=== PATIENT | male | born 1965 | race Two or more races ===

== ENCOUNTER → 2024-06-29 | Outpatient (CLI) | payer MEDICAID, SELFPAY ==
--- NOTE | 2024-06-29 11:30 | XR_ITS ---
Examination: Abdomen sonogram, Limited Date and time of exam: June 29, 2024 11:00 AM INDICATIONS: Abnormal liver function tests on laboratory examination one month ago Technique: Real-time flores scale transabdominal sonographic images of the upper abdomen obtained. Findings: Normal gallbladder Normal common bile duct 0.5 cm Pancreas obscured by bowel gas Liver 13.3 cm fatty infiltration smooth contour no focal liver lesions Normal hepatopedal portal venous flow Patent IVC IMPRESSION: Normal gallbladder Normal common bile duct Fatty liver
== END | disposition home or self-care (01) ==
LOC: CDIM 10:35
PROVIDERS: PCP Physician Assistant; Referring Provider Physician Assistant; Visit Provider Physician Assistant
DX: K76.0 Fatty (change of) liver, not elsewhere classified (principal)
CPT/HCPCS: 76705

== ENCOUNTER → 2025-03-13 | Outpatient (CLI) | payer MEDICAID, SELFPAY ==
--- NOTE | 2025-03-13 09:30 | XR_ITS ---
Examination: Abdomen sonogram, Limited Date and time of exam: March 13, 2025, 0926 hours INDICATIONS: Elevated alkaline phosphatase on laboratory examination performed several months ago Technique: Real-time flores scale transabdominal sonographic images of the upper abdomen obtained. Findings: Normal gallbladder. Normal common bile duct 0.5 cm no stones Pancreatic head 2.2 cm Liver 13.7 cm no liver lesions Normal hepatopetal portal venous flow Patent IVC IMPRESSION: Negative study
== END | disposition home or self-care (01) ==
PROVIDERS: PCP Physician Assistant; Referring Provider Physician Assistant; Visit Provider Physician Assistant
DX: R74.8 Abnormal levels of other serum enzymes (principal)
CPT/HCPCS: 76705